=== PATIENT | female | born 1945 | race Caucasian/White ===

== ENCOUNTER 2020-11-04 15:03 | Inpatient (IN) | payer MEDICARE, BC ==
[2020-11-04 16:20] LABS: #Eosinphils 0.3 thou/uL (0.0-0.7); #Lymphocytes 2.1 thou/uL (1.20-3.40); #Monocytes 1.2 thou/uL (0.11-0.59); #Neutrophils 10.5 thou/uL (1.40-6.50); %Basophils 0.2 % (0.0-1.0); %Lymphocytes 14.7 % (21.0-51.0); %Monocytes 8.6 % (0.0-10.0); %Neutrophils 74.5 % (42.0-75.0); Hemoglobin 11.7 g/dL (12.0-16.0); Mean Corpuscular HGB CONC 34.2 g/dL (32.0-36.0); Mean Corpuscular Hemoglobin 31.9 pg (27.0-31.0); Mean Corpuscular Volume 93.3 fL (78.0-98.0); Mean Platelet Volume 6.8 fL (7.4-10.4); Platelet Count 318 thou/uL (130-400); Red Blood Cell (RBC) Count 3.67 mill/uL (4.20-5.40)
[2020-11-04 16:42] LABS: ALT (SGPT) 15 U/L (8-55); AST (SGOT) 20 U/L (5-34); Albumin 3.7 g/dL (3.4-4.8); Alkaline Phosphatase 102 U/L (40-110); Anion Gap 11 mmol/L (10-20); BUN (Urea Nitrogen) 16 mg/dL (9.8-20.1); Bilirubin, Total 0.3 mg/dL (0.2-1.2); CK (CPK) 130 U/L (29-168); Calc. Creatinine Clearance 0 mL/min (70-130); Calcium 9.4 mg/dL (7.8-10.44); Carbon Dioxide 30 mmol/L (23-31); Chloride 98 mmol/L (98-107); Globulin 2.6 g/dL (2.4-3.5); Glucose 78 mg/dL (83-110); Lipase 33 U/L (8-78); Potassium 3.8 mmol/L (3.5-5.1); Protein, Total 6.3 g/dL (5.8-8.1); Sodium 135 mmol/L (136-145)
[2020-11-04 17:21] LABS: Bacteria/HPF None Seen HPF (None Seen); Bilirubin Negative (Negative); Blood, Urine Negative (Negative); Clarity Clear (Clear); Glucose, Urine (Dipstick) Normal (Negative); Ketone, Urine Negative (Negative); Leukocyte 25 Leu/uL (Negative); Nitrite Negative (Negative); Protein, Urine (Dipstick) Negative (Neg-Trace); RBC/HPF 0-3 HPF (0-3); Specific Gravity, Urine 1.012 (1.002-1.036); Squamous Epithelial 0-3 HPF (0-3); Urobilinogen Normal mg/dL (Less than 2); WBC/HPF 0-3 HPF (0-3)
[2020-11-04] MEDS ORDERED: Dextrose 50% Abboject 50 ML SYRINGE SLOW IVP PRN (20:28)
[2020-11-04] MEDS ORDERED: Dextrose 5% in Water 1,000 ML IV PRN (20:28)
[2020-11-04] MEDS ORDERED: HumaLOG 300 UNITS/3 ML VIAL SC PRN (20:28)
[2020-11-04] MEDS ORDERED: Insulin Regular 300 UNITS/3 ML VIAL SC PRN (20:28)
[2020-11-04 20:38] LABS: Magnesium 1.7 mg/dL (1.6-2.6); Phosphorus 3.5 mg/dL (2.3-4.7)
[2020-11-04] MEDS: Acetaminophen/Codeine 30-300mg Tablet PO PRN (21:40)
[2020-11-04 22:02] LABS: Troponin I Less than 0.010 ng/mL (< 0.028)
[2020-11-04 22:11] VITALS: BMI 30.9
[2020-11-04] MEDS ORDERED: Simethicone Chewable 80 MG TAB PO PRN (22:51)
[2020-11-04] MEDS ORDERED: Nitroglycerin 0.4 MG TAB (25 Tab Bottle) SL PRN (22:51)
[2020-11-04 23:01] LABS: Troponin I Less than 0.010 ng/mL (< 0.028)
[2020-11-05] MEDS ORDERED: Cephalexin 250 MG CAP PO SCH (00:30)
[2020-11-05] MEDS ORDERED: Gabapentin 100 MG CAP PO SCH ×2 (01:30→21:00)
[2020-11-05] MEDS ORDERED: DULoxetine 60 MG CAP PO SCH ×3 (01:30→21:00)
[2020-11-05] MEDS ORDERED: Magnesium Oxide 400 MG TAB PO SCH (01:30)
[2020-11-05] MEDS ORDERED: Montelukast Sodium 10 mg Tablet PO SCH ×3 (01:30→21:00)
[2020-11-05] MEDS ORDERED: Melatonin 3 MG TAB PO SCH ×3 (01:30→21:00)
[2020-11-05] MEDS: Acetaminophen/Codeine 30-300mg Tablet PO PRN ×4 (01:41→23:10)
[2020-11-05 05:19] LABS: #Basophils 0.1 thou/uL (0.0-0.2); #Eosinphils 0.2 thou/uL (0.0-0.7); #Lymphocytes 2.4 thou/uL (1.20-3.40); #Monocytes 1.1 thou/uL (0.11-0.59); %Basophils 0.7 % (0.0-1.0); %Lymphocytes 22.1 % (21.0-51.0); %Monocytes 9.9 % (0.0-10.0); %Neutrophils 65.3 % (42.0-75.0); Hemoglobin 12.7 g/dL (12.0-16.0); Mean Corpuscular HGB CONC 33.6 g/dL (32.0-36.0); Mean Corpuscular Hemoglobin 31.3 pg (27.0-31.0); Mean Corpuscular Volume 93.2 fL (78.0-98.0); Mean Platelet Volume 7.1 fL (7.4-10.4); Platelet Count 325 thou/uL (130-400); RBC Distribution Width 13.1 % (11.5-14.5); Red Blood Cell (RBC) Count 4.04 mill/uL (4.20-5.40); White Blood Cell (WBC) Count 10.7 thou/uL (4.8-10.8)
[2020-11-05 05:42] LABS: Anion Gap 15 mmol/L (10-20); BUN (Urea Nitrogen) 15 mg/dL (9.8-20.1); Calc. Creatinine Clearance 77 mL/min (70-130); Calcium 10.3 mg/dL (7.8-10.44); Carbon Dioxide 25 mmol/L (23-31); Chloride 100 mmol/L (98-107); Glucose 150 mg/dL (83-110); Sodium 136 mmol/L (136-145)
[2020-11-05] MEDS: Levothyroxine Sodium 100 MCG TAB PO SCH (06:05)
[2020-11-05] MEDS: Budesonide 0.25 MG/2 ML NEB NEB SCH ×3 (07:37→21:39)
[2020-11-05 08:06] LABS: Hemoglobin A1c 6.7 % (4.0-6.0)
[2020-11-05] MEDS: Ferrous Sulfate 325 MG TAB PO SCH (08:28)
[2020-11-05] MEDS: Cephalexin 250 MG CAP PO SCH ×3 (08:28→20:24)
[2020-11-05] MEDS: Atorvastatin Calcium 40 MG TAB PO SCH (08:28)
[2020-11-05] MEDS: Aspirin 81 mg Enteric Coated Tablet PO SCH (08:28)
[2020-11-05] MEDS: Clopidogrel Bisulfate 75 MG TAB PO SCH (08:28)
[2020-11-05] MEDS: Metoprolol Tartrate 25 MG TAB PO SCH ×2 (08:29→20:25)
[2020-11-05] MEDS: Magnesium Oxide 400 MG TAB PO SCH (08:29)
[2020-11-05] MEDS ORDERED: Donepezil Hcl [Donepezil Hcl] 23 MG Tablet PO SCH (09:00)
[2020-11-05 11:15] LABS: SARS-CoV-2 PCR by NAA Not Detected (NotDetected)
[2020-11-05] MEDS ORDERED: Donepezil HCl 10 MG TAB PO SCH (21:00)
[2020-11-05] MEDS: Lorazepam 1 MG TAB PO PRN (23:10)
[2020-11-06 05:15] LABS: #Basophils 0.1 thou/uL (0.0-0.2); #Eosinphils 0.2 thou/uL (0.0-0.7); #Lymphocytes 3.8 thou/uL (1.20-3.40); #Monocytes 1.4 thou/uL (0.11-0.59); #Neutrophils 8.1 thou/uL (1.40-6.50); %Basophils 0.5 % (0.0-1.0); %Eosinophils 1.2 % (0.0-10.0); %Monocytes 10.3 % (0.0-10.0); %Neutrophils 59.9 % (42.0-75.0); Hemoglobin 13.5 g/dL (12.0-16.0); Mean Corpuscular HGB CONC 34.7 g/dL (32.0-36.0); Mean Corpuscular Hemoglobin 31.9 pg (27.0-31.0); Mean Platelet Volume 6.8 fL (7.4-10.4); Platelet Count 334 thou/uL (130-400); RBC Distribution Width 13.1 % (11.5-14.5); Red Blood Cell (RBC) Count 4.23 mill/uL (4.20-5.40); White Blood Cell (WBC) Count 13.5 thou/uL (4.8-10.8)
[2020-11-06 05:36] LABS: Anion Gap 16 mmol/L (10-20); BUN (Urea Nitrogen) 13 mg/dL (9.8-20.1); Calc. Creatinine Clearance 73 mL/min (70-130); Calcium 10.3 mg/dL (7.8-10.44); Carbon Dioxide 25 mmol/L (23-31); Chloride 97 mmol/L (98-107); Glucose 153 mg/dL (83-110); Potassium 3.9 mmol/L (3.5-5.1); Sodium 134 mmol/L (136-145)
[2020-11-06] MEDS: Levothyroxine Sodium 100 MCG TAB PO SCH (06:39)
[2020-11-06] MEDS: Budesonide 0.25 MG/2 ML NEB NEB SCH (06:58)
[2020-11-06] MEDS: Atorvastatin Calcium 40 MG TAB PO SCH (10:05)
[2020-11-06] MEDS: Aspirin 81 mg Enteric Coated Tablet PO SCH (10:05)
[2020-11-06] MEDS: Clopidogrel Bisulfate 75 MG TAB PO SCH (10:07)
[2020-11-06] MEDS: Ferrous Sulfate 325 MG TAB PO SCH (10:07)
[2020-11-06] MEDS: Lorazepam 1 MG TAB PO PRN (10:09)
[2020-11-06] MEDS: Metoprolol Tartrate 25 MG TAB PO SCH (10:10)
[2020-11-06] MEDS: Magnesium Oxide 400 MG TAB PO SCH (10:11)
[2020-11-06] MEDS ORDERED: Lantus 1000 UNITS/10 ML VIAL SC SCH ×2 (10:30→21:00)
[2020-11-06] MEDS ORDERED: HumaLOG 300 UNITS/3 ML VIAL SC SCH ×2 (12:00)
[2020-11-06 12:13] VITALS: TEMP 98.8
[2020-11-06] MEDS: Cephalexin 250 MG CAP PO SCH (12:54)
[2020-11-06 13:36] VITALS: BP 127/60
[2020-11-06] MEDS ORDERED: Non-Formulary Item 1 EACH (Insulin Glargine,Hum.Rec.Anlog [Toujeo Solostar] 300 UNIT/ML I SQ SCH (21:00)
== END 2020-11-06 14:09 | disposition home health service (06) | DRG 880 ==
LOC: ERS 15:03 → 2SW 17:54 → OBSVTOIN 11-05 17:05
PROVIDERS: ADMIT Student in an Organized Health Care Education/Training Program; ATTEND Student in an Organized Health Care Education/Training Program
DX: F44.5 Conversion disorder with seizures or convulsions (principal); E87.1 Hypo-osmolality and hyponatremia; Z20.822 Contact with and (suspected) exposure to COVID-19; R29.6 Repeated falls; I25.10 Atherosclerotic heart disease of native coronary artery without angina pectoris; E11.40 Type 2 diabetes mellitus with diabetic neuropathy, unspecified; I10 Essential (primary) hypertension; J44.9 Chronic obstructive pulmonary disease, unspecified; E03.9 Hypothyroidism, unspecified; F03.90 Unspecified dementia, unspecified severity, without behavioral disturbance, psychotic disturbance, mood disturbance, and anxiety; F32.9 Major depressive disorder, single episode, unspecified; F41.9 Anxiety disorder, unspecified; F39 Unspecified mood [affective] disorder; D64.9 Anemia, unspecified; M79.7 Fibromyalgia; L71.9 Rosacea, unspecified; G89.29 Other chronic pain; M54.9 Dorsalgia, unspecified; E78.5 Hyperlipidemia, unspecified; S00.83XA Contusion of other part of head, initial encounter; I95.1 Orthostatic hypotension; K21.9 Gastro-esophageal reflux disease without esophagitis; W18.30XA Fall on same level, unspecified, initial encounter; S50.11XA Contusion of right forearm, initial encounter; Z95.1 Presence of aortocoronary bypass graft; Z91.81 History of falling; Z79.899 Other long term (current) drug therapy
CPT/HCPCS: 36415; 36416; 70450; 80048; 80053; 81003; 81015; 82550; 83036; 83690; 83735; 84100; 84443; 84484; 85025; 85652; 86140; 93005; 94640; G0378; J1815; J7620; J7626; U0003; U0005